=== PATIENT | female | born 1945 | race American Indian/Alaskan Native ===

== ENCOUNTER 2017-12-22 17:11 | Emergency (ER) | payer OTHER, MEDICARE ==
[2017-12-22 17:32] VITALS: BP 166/67
[2017-12-22] MEDS ORDERED: TORADOL IM ONE (20:49)
[2017-12-22] MEDS ORDERED: FLEXERIL PO ONE (20:49)
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
== END 2017-12-22 22:10 | disposition home or self-care (01) ==
LOC: ED 17:11
DX: S46.911A Strain of unspecified muscle, fascia and tendon at shoulder and upper arm level, right arm, initial encounter (principal); I10 Essential (primary) hypertension; I50.9 Heart failure, unspecified; Z88.0 Allergy status to penicillin; V43.62XA Car passenger injured in collision with other type car in traffic accident, initial encounter; Y93.89 Activity, other specified; Y92.89 Other specified places as the place of occurrence of the external cause; Y99.8 Other external cause status
CPT/HCPCS: 73030; 96372; 99284; J1885